=== PATIENT | female | born 1980 | race Caucasian/White ===

== ENCOUNTER 2019-09-04 16:20 | Outpatient (CLI) | payer SELFPAY | END 2019-09-04 16:21 | disposition home or self-care (01) | LOC: CHSLAB 16:26 | PROVIDERS: PCP Physician Assistant; Visit Provider Specialist | DX: D22.72 Melanocytic nevi of left lower limb, including hip (principal) | CPT/HCPCS: 88305; 88342 ==

== ENCOUNTER 2019-09-11 16:02 | Outpatient (CLI) | payer SELFPAY | END 2019-09-11 16:03 | disposition home or self-care (01) | LOC: CHSLAB 16:04 | PROVIDERS: PCP Physician Assistant; Visit Provider Specialist | DX: D22.5 Melanocytic nevi of trunk (principal) | CPT/HCPCS: 88305; 88342 ==

== ENCOUNTER 2022-12-03 17:17 | Emergency (ER) | payer SELFPAY ==
--- NOTE | ~2022-12-03 | XR_ITS ---
EXAMINATION: XR foot LT min 3V DATE: 12/03/2022 17:36 INDICATION: Left foot pain TECHNIQUE: Dorsoplantar, lateral, and 2 oblique views of the left foot were obtained. COMPARISON: None. FINDINGS: No fracture, dislocation, or subluxation. The bones, soft tissues, and joint spaces are nor mal. IMPRESSION: 1. No acute osseous abnormality. Reviewed, dictated and finalized at location F.
[2022-12-03 17:23] VITALS: BP 141/90; PULSE 83; RESP 16; TEMP 36.6; O2SAT 100
--- NOTE | 2022-12-03 17:23 | ED.LOWEXIN ---
HPI - Extremity Injury (Lower) General Chief Complaint: Extremity Injury, Lower Stated Complaint: Left Ankle Injury Time Seen by Provider: 12/03/22 17:23 Source: patient Mode of arrival: ambulatory Limitations: no limitations History of Present Illness HPI Narrative: Gillian is a 42-year-old female patient presenting to the clinic today with complaints of left foot injury that occurred 1 week ago. She reports a Serbian Baker/Airdell puppy that weighed approximately 20 lb ran into her left foot on Tuesday of last week. States that if there was a lot of bruising and swelling to her foot shortly after however swelling and bruising has now subsided she is still having some pain to the left lateral foot specifically over the left 5th metatarsal. Related Data Home Medications Medication Instructions Recorded Confirmed buspirone 5 mg tablet 5 mg PO BID 12/03/22 12/03/22 hydroxyzine HCl 25 mg tablet 25 mg PO TID PRN Anxiety 12/03/22 12/03/22 lisinopril 20 mg tablet 20 mg PO DAILY 12/03/22 12/03/22 norethindrone acetate 5 mg tablet 5 mg PO DAILY 12/03/22 12/03/22 Allergies Allergy/AdvReac Type Severity Reaction Status Date / Time No Known Allergies Allergy Verified 12/03/22 17:31 Review of Systems Review of Systems: Pertinent positives per HPI. Patient denies any fever, chills, rash, headache, visual changes, dizziness, cough, runny nose, sore throat, shortness of breath, chest pain, palpitations, nausea, vomiting, diarrhea, constipation, abdominal pain, or any urinary issues. PMFSH Comments At the time of my signature, I reviewed and agree with the nursing past medical, surgical, social, and family history. There is no relevant family history pertinent to the patient complaint. Exam Narrative: General: Well-developed, well nourished, in no apparent distress Head: Normocephalic, atraumatic. Cardio: Regular rate and rhythm, s1 and s2 normal, no murmur appreciated. Resp: Clear to auscultation bilaterally, no rhonchi, rales, wheezing or rubs. Musculoskeletal: No deformity, no bruising or swelling noted, tender to palpation over the left 5th metatarsal, grossly normal range of motion, muscle strength strong and equal, peripheral pulse strong, no edema, no cyanosis, normal gait and station Course Course Emergency Course: Portions of this record may have been created with voice recognition software. Level of Care: Express Care Visit Vital Signs Vital signs: Vital signs reviewed MDM - Extremity Injury (Lower) MDM Narrative Medical decision making narrative: At the time of visit patient is resting comfortably on the exam table. X-ray of the left foot was obtained and was negative for any fracture or malalignment. I suspect patient has left foot strain. Supportive measures were discussed with the patient she voiced understanding discharge instructions and agrees to treatment plan. Differential Diagnosis Differential diagnosis: Likely ankle sprain and strain and ankle fracture Imaging Data Radiologist's impression: ITS Impressions Foot X-Ray 12/03/22 17:57 IMPRESSION: 1. No acute osseous abnormality. Discharge Plan Discharge Clinical Impression: Foot sprain Qualifiers: Encounter type: initial encounter Laterality: left Qualified Code(s): S93.602A - Unspecified sprain of left foot, initial encounter Patient Disposition: Home, Self-Care Condition: Stable Instructions: Antibiotic Form, Foot Sprain (ED) Additional Instructions: X-rays negative for any sign of fracture or malalignment. Rest, ice, elevate, and wear jordan wrap as directed Tylenol/motrin for pain as discussed. Gradually bear weight No running or sports until healed. Follow up with your PCP if symptoms persist more than 1 week. Prescriptions: No Action buspirone 5 mg tablet 5 mg PO BID lisinopril 20 mg tablet 20 mg PO DAILY hydroxyzine HCl 25 mg tablet 25 mg PO TID PRN (Reason: An
== END 2022-12-03 18:10 | disposition home or self-care (01) ==
PROVIDERS: Emergency Provider Nurse Practitioner Family; PCP Physician Assistant
DX: S93.602A Unspecified sprain of left foot, initial encounter (principal); Z79.899 Other long term (current) drug therapy; W54.1XXA Struck by dog, initial encounter
CPT/HCPCS: 73630; 99203; G0463

== ENCOUNTER 2024-07-24 08:17 | Emergency (ER) | payer SELFPAY ==
--- NOTE | ~2024-07-24 | XR_ITS ---
[id number] Ordering provider: ARVIND Cano History: . pain rt side neck and rt side upper thoracic spine,no injury . Comparison: None. FINDINGS: VERTEBRAL BODIES: Normal height and alignment. No visible fracture or subluxation. The dens is intact . DISK SPACES: Narrowing of the disc C5-C6 and C6-C7. Uncovertebral joint osteoarthritic changes seen a t the same levels. Facet joint disease at the level of C7-T1. PARASPINOUS SOFT TISSUES: No prevertebral soft tissue swelling. IMPRESSION: No acute osseous abnormality cervical spine. Multilevel severe degenerative disc disease. Reviewed, dictated and finalized at location A.
--- NOTE | ~2024-07-24 | XR_ITS ---
3 VIEWS THORACIC SPINE Ordering provider: ARVIND Cano History: . pain rt side neck and rt side upper thoracic spine,no injury . Comparison: None. FINDINGS: VERTEBRAL BODIES: Normal height and alignment. No visible fracture or subluxation. Degenerative loza es of the spine. DISK SPACES: Multilevel degenerative disc disease in the mid and lower thoracic areas. SOFT TISSUES: Normal. IMPRESSION: No acute osseous abnormality of the thoracic spine. Multilevel degenerative disc disease in the mid and lower thoracic area. Reviewed, dictated and finalized at location A.
[2024-07-24 08:22] VITALS: BP 173/102; PULSE 74; RESP 16; TEMP 36.9; O2SAT 100
--- OUTSIDE RECORDS SUMMARY | 2024-07-24 08:26 | XMS_ITS | Clinical Summary ---
Author Organization [facility] Address [address] [place] [address] Phone Care Team Providers Care Acting Teacher Name Role Phone Henry Sanon Primary Care Provider [phone] Allergies Active Allergy Reactions Criticality Noted Date Comments Prednisone Unknown 07/21/2016 Medications omeprazole (PRILOSEC) 20 MG CAPSULE DELAYED RELEASE Take 1 Cap by mouth daily. 30 Cap 0 6 Active traMADol (ULTRAM) 50 MG Tablet Take 1-2 Tabs by mouth every 6 hours as needed for Pain. 20 Tab 0 7 Active cyclobenzaprine (FLEXERIL) 5 MG Tablet Take 1 Tab by mouth 3 times daily as needed for Muscle spasms. 14 Tab 9 Active traMADol (ULTRAM) 50 MG Tablet Take 1 Tab by mouth every 6 hours as needed for Mild or more severe pain. 14 Tab 9 Active lisinopril (PRINIVIL, ZESTRIL) 20 MG Tablet Take 20 mg by mouth daily. Active butalbital-aceta minophen-caffein e (FIORICET, ESGIC) 50-325-40 MG Tablet Take 1 Tab by mouth every 4 hours as needed for Headaches. 12 Tab 9 Active ondansetron (ZOFRAN ODT) 4 MG TABLET DISPERSIBLE Take 1 Tab by mouth every 8 hours as needed for Nausea - 1st line. 12 Tab 9 Active metoclopramide (REGLAN) 10 MG Tablet Take 1 Tab by mouth 4 times daily as needed for Nausea - 1st line or Other (ARITA). 10 Tab 9 Active SUMAtriptan (IMITREX) 100 MG Tablet Take 1 Tab by mouth daily as needed for Migraine. Use as directed. May repeat dose in 2 hours if headache recurs. 9 Tab 9 Active venlafaxine (EFFEXOR-XR) 75 MG CAPSULE SR 24 HR Take 75 mg by mouth daily. Active traMADol (ULTRAM) 50 MG Tablet Take 1-2 Tabs by mouth every 6 hours as needed for Moderate or more severe pain. 20 Tab 0 Active Pregabalin (LYRICA PO) Take by mouth. Act jordan albuterol 108 (90 Base) MCG/ACT Aerosol Solution take 2 Puffs by inhalation every 6 hours as needed for Cough. 6.7 g 3 Active naproxen (NAPROSYN) 500 MG Tablet Take 1 Tablet by mouth 2 times daily as needed for Mild or more severe pain. 20 Tablet 4 Active Social History Tobacco Use Types Packs/Day Years Used Date Smoking Tobacco: Every Day Cigarettes 0.5 20 Smokeless Tobacco: Never Alcohol Use Standard Drinks/Week Comments Yes 1 (1 standard drink = 0.6 oz pur e alcohol) drinks on fridays Comments No Sex and Gender Information Value Date Recorded Sex Assigned at Not on file Legal Sex Female 9:26 PM CDT Gender Identity Not on file Sexual Orientation Not on file Last Filed Vital Signs Vital Sign Reading Time Taken Comments Blood Pressure 160/80 03/02/2024 2:49 PM PERSONNEL RECRUITER Pulse 82 03/02/2024 2:49 PM PERSONNEL RECRUITER Temperature 36.3 C (97.4 F) 03/02/2024 12:51 PM PERSONNEL RECRUITER Respiratory Rate 20 03/02/2024 2:49 PM PERSONNEL RECRUITER Oxygen Saturation 100% 03/02/2024 2:49 PM PERSONNEL RECRUITER Inhaled Oxygen Concentration - - Weight 69.9 kg (154 lb 1.6 oz) 03/02/2024 12:51 PM PERSONNEL RECRUITER Height 162.6 cm (5' 4 ) 03/02/2024 12:51 PM PERSONNEL RECRUITER Body Mass Index 26.45 03/02/2024 12:51 PM PERSONNEL RECRUITER Plan of Treatment Health Maintenance Due Date Last Done Comments Hepatitis C Virus (HCV) Screening 1978 TdaP Immunization 1978 Hepatitis B Immunization (1 of 3 - 19+ 3-dose series) 1997 Pneumococcal Immunization Combined (1 of 2 - PCV) 1997 HPV/Cotest 2008 Discussion re Starting/Frequency of Mammograms 2018 Mammogram 09/21/2022 09/21/2021 Influenza Immunization (#1) 2023 SARS-COV-2 Immunization (2023- season) 2023 Cervical Cancer Screening (CCS) 09/21/2024 Pap Smear 09/21/2024 09/21/2021, 09/21/2021, 03/07/2011 Immunochemical Fecal Occult Blood 2028 09/21/2021 Colonoscopy 09/22/2031 09/21/2021 Colorectal Cancer Screening 09/22/2031 Respiratory Syncytial Virus (RSV) Immunization (Adult) (1 - 1-dose 75+ series) 2053 09/21/2021 Meningococcal Immunization (ACWY) Aged Out No longer eligible b ased on patient's age to complete this topic Rotavirus Immunization Aged Out No lo nger eligible based on patient's age to complete this topic Care Teams Acting Teacher Relationship Specialty Start Date End Date Henry Sanon PAC [address] [place] [address] PCP - General Physician Media Services Coordinator 05/22/18
--- OUTSIDE RECORDS SUMMARY | 2024-07-24 08:26 | XMS_ITS | Clinical Summary ---
Author Organization [facility] [address] Address [address] [place] [address] Care Team Providers Care Napping Machine Operator Name Role Phone Henry Sanon Primary Care Provider [phone] Allergies Active Allergy Reactions Criticality Noted Date Comments Acetaminophen Itching Reaction: itching, Codeine Hydrocodone Itching Reaction: itching, Prednisone Medications lisinopriL (PRINIVIL,ZESTRIL) 20 mg tablet TAKE 1 TABLET BY MOUTH ONCE DAILY FOR 90 DAYS 0 Active venlafaxine XR (EFFEXOR-XR) 75 mg 24 hr capsule TAKE 1 CAPSULE BY MOUTH ONCE DAILY FOR 90 DAYS 0 Active ondansetron ODT (ZOFRAN-ODT) 4 mg disintegrating tablet Take 4 mg by mouth every 8 (eight) hours as needed 9 Active traMADoL (ULTRAM) 50 mg tablet Take 50-100 mg by mouth every 6 (six) hours as needed 9 Active metoclopramide (REGLAN) 10 mg tablet Take 10 mg by mouth 4 (four) times a day as needed 9 Active ibuprofen (ADVIL,MOTRIN) 600 mg tablet Take 1 tablet (600 mg total) by mouth 3 (three) times a day Take with food. 30 tablet 0 Active Active Problems Problem Noted Date Diagnosed Date Infection of skin 12/24/2013 Overview (06/10/2016): Skin infection Surgical History Surgery Date Site/Laterality Comments OTHER SURGICAL HISTORY Left leg surgery Medical History Medical History Date Comments Cervical dystonia Social History Tobacco Use Types Packs/Day Years Used Date Smoking Tobacco: Every Day Cigarettes Tobacco Cessation:Counseling Given: No Alcohol Use Standard Drinks/Week Comments Not Currently 0 (1 standard drink = 0.6 oz pur e alcohol) Comments No Sex and Gender Information Value Date Recorded Sex Assigned at Not on file Legal Sex Female 6:27 PM PHOTO GRAPHICS LIBRARIAN Gender Identity Not on file Sexual Orientation Not on file Obstetrics History Last Filed Vital Signs Vital Sign Reading Time Taken Comments Blood Pressure 153/90 09/08/2021 4:30 PM CDT Pulse 62 09/08/2021 4:30 PM CDT Temperature 36.8 C (98.3 F) 09/08/2021 12:14 PM CDT Respiratory Rate 16 09/08/2021 4:30 PM CDT Oxygen Saturation 98% 09/08/2021 4:30 PM CDT Inhaled Oxygen Concentration - - Weight 65.8 kg (145 lb) 09/08/2021 12:14 PM CDT Height 162.6 cm (5' 4 ) 09/08/2021 12:14 PM CDT Body Mass Index 24.89 09/08/2021 12:14 PM CDT Plan of Treatment Health Maintenance Due Date Last Done Comments Breast Cancer Screening-Mammogram 1978 Cervical Cancer Screening 1978 Colon Cancer Screening-Colonoscopy 1978 Depression Screening 1978 Hepatitis C Screening 1978 DTaP/Tdap/Td Vaccine (1 - Tdap) 1989 Hepatitis B Screening 1996 Regular Well Visit/Exam 18-64 1996 Pneumococcal vaccine <65 (1 of 2 - PCV) 1997 Influenza Vaccine (Season Ended) 2024 HPV Vaccines Aged Out No longer eligi ble based on patient's age to complete this topic Care Teams Napping Machine Operator Relationship Specialty Start Date End Date Henry Sanon PA [address] [place] [address] PCP - General Family Practice 08/13/19
--- OUTSIDE RECORDS SUMMARY | 2024-07-24 08:26 | XMS_ITS | Encounter Summary ---
Author Organization [facility] Address [address] [place] [address] Phone Care Team Providers Care Calibration Specialist Name Role Phone Henry Sanon Primary Care Provider Encounter Details Date Type Department Care Team (Late st Contact Info) Description 01/21/2023 Transcribe Orders [facility] Central Scheduling [address] [place] [address] Henry Sanon, PAC [address] [place] [id number] Lumbar radiculopathy (Primary Dx) Social History Tobacco Use Types Packs/Day Years [...] on file Sexual Orientation Not on file documented as of this encounter Plan of Treatment Not on file documented as of this encounter Visit Diagnoses Diagnosis Lumbar radiculopathy- Primary Thoracic or lumbosacral neuritis or radiculitis, unspecified documented in this encounter Additional Health Concerns Infection Onset Date Last Indicated Resolved Time COVID - 19 10/16/2023 10/16/2023 10/16/2023 8:48 AM CDT documented as of this encounter Care Teams Calibration Specialist Relationship Specialty Start Date End Date Henry Sanon, [facility] [address] [place] [address] PCP - General Physician Applied Statistician 05/22/18 documented as of this encounter
--- OUTSIDE RECORDS SUMMARY | 2024-07-24 08:26 | XMS_ITS | Clinical Summary ---
Author Organization [facility] Address [address] [place] [address] Care Team Providers Care Grading Clerk Name Role Phone Henry Sanon Primary Care Provider [phone] Source Comments [facility],non-owned Affiliates and Associated Physician Practices is amultiple site organization consisting of ambulatory clinics and hospital sitesin [place] and [place]. This disclosure is being madepursuant to the Care Everywhere program and may not contain all information available regarding this patient. Last updated 17.[facility] [employer] Allergies Active Allergy Reactions Criticality Noted Date Comments Acetaminophen Itching 06/29/2023 Reaction: itching, Prednisone Itching 08/22/2018 Medications * Be aware that medications may not be up to date on this document. Alwaysverify current medications with the patient. lisinopril (PRINIVIL; ZESTRIL) 20 MG tablet 1 (one) tablet 0 9 Active naproxen (NAPROSYN) 375 MG tablet Take 1 (one) tablet by mouth 7 Active omeprazole (PRILOSEC) 20 MG capsule Take 1 (one) capsule by mouth once daily 6 Active topiramate (TOPAMAX) 50 MG tablet Take 1 tablet by mouth 2 times daily 60 tablet 3 9 Active Additional Information Patient not taking.Reported on 06/29/2023 albuterol HFA (Proventil; Ventolin; Proair) 108 (90 Base) MCG/ACT inhaler INHALE 2 PUFFS BY MOUTH EVERY 4 HOURS BY INHALATION ROUTE 3 Active busPIRone (Buspar) 5 MG tablet Take 1 (one) tablet by mouth 2 times daily 4 Active hydrOXYzine HCl (Atarax) 25 MG tablet Take 1 (one) tablet by mouth 3 times daily as needed 3 Active lisinopril (Prinivil; Zestril) 20 MG tablet Take 1 (one) tablet by mouth once daily Active losartan (Cozaar) 100 MG tablet TAKE 1 TABLET BY MOUTH ONCE DAILY FOR 90 DAYS. DISCONTINUE LISINOPRIL 4 Active baclofen (Lioresal) 20 MG tablet Take 1 (one) tablet by mouth 3 times daily as needed 4 Active botulinum toxin type A 100 units/1 ml (Botox) 100 UNIT injectionIndicat ions:Spasmodic Torticollis Inject 1 mL into muscle Every 90 days for 90 days Reasons: Involuntary Movements in Neck Muscles 1 mL 3 4 Active Active Problems Problem Noted Date Diagnosed Date Idiopathic peripheral neuropathy Dystonia Family History Medical History Relation Name Comments Renal Disease Brother CAD (Coronary Artery Disease) Father Dementia Maternal Grandfather Cancer - Breast Mother CVA Paternal Grandfather Hypertension Paternal Grandfather Hypertension Paternal Grandmother Relation Name Status Comments Brother Father Alive Maternal Grandfather Mother Alive Paternal Grandfather Alive Paternal Grandmother Social History Tobacco Use Types Packs/Day Years Used Date Smoking Tobacco: Every Day Cigarettes 0.5 30.9 Started: 08/22/1993 Smokeless Tobacco: Never Tobacco Cessation:Ready to Q uit: Not Asked; Counseling Given: Not Answered Alcohol Use Standard Drinks/Week Comments Yes 0 (1 standard drink = 0.6 oz pur e alcohol) rarely Comments No Sex and Gender Information Value Date Recorded Sex Assigned at Not on file Legal Sex Female 11:55 AM RUG WASHER Gender Identity Not on file Sexual Orientation Not on file Occupation Industry Job Start Date Job End Date Unemployed Not on file Not on file Not on file Last Filed Vital Signs Vital Sign Reading Time Taken Comments Blood Pressure 122/81 06/29/2023 9:04 AM CDT Pulse 76 06/29/2023 9:04 AM CDT Temperature 36.4 C (97.5 F) 06/29/2023 9:04 AM CDT Respiratory Rate - - Oxygen Saturation 97% 06/29/2023 9:04 AM CDT Inhaled Oxygen Concentration - - Weight 68.9 kg (152 lb) 06/29/2023 9:04 AM CDT Height 162.6 cm (5' 4 ) 08/22/2018 8:05 AM CDT Body Mass Index 26.09 08/22/2018 8:05 AM CDT Plan of Treatment Health Maintenance Due Date Last Done Comments COLOGUARD (AGES 45-75) - COL ON CA SCREENING 1978 COLON MONITORING 1978 COLONOSCOPY - COLON CA SCREENING 1978 CT COLONOGRAPHY - COLON CA SCREENING 1978 Colorectal Cancer Screening 1978 FIT - COLON CA SCREENING 1978 FLEX SIG - COLON CA SCREENING 1978 LIPID TESTING 1978 MAMMOGRAM 1978 PAP SMEAR 1978 HIV SCREENING 1993 HEPATITIS C SCREENING 04/18/1996 DTAP/TDAP/TD VACCINES (1 - Tdap) 1997 HEPATITIS B VACCINE (1 of 3 - 19+ 3-dose series) 1997 PNEUMOCOCCAL VACCINE (1 of 2 - PCV) 1997 COVID-19 VACCINE (1 - 2023-2 5 season) 2023 DEPRESSION SCREENING 03/07/2024 INFLUENZA VACCINE (Season Ended) 2024 ZOSTER VACCINE (1 of 2) 2028 HIB VACCINE Aged Out No longer eligi ble based on patient's age to complete this topic HPV VACCINE Aged Out No longer eligi ble based on patient's age to complete this topic MENINGOCOCCAL (Group B) VACC INE SHARED DECISION-MAKING Aged Out No longer eligibl e based on patient's age to complete this topic MENINGOCOCCAL GROUPS A/C/Y/W VACCINE Aged Out No longer eligible b ased on patient's age to complete this topic Insurance SELF PAY NO INSURANCE Member Subscriber Plan / Payer (Ef fective for All Dates) Name:Bhumi Ching Member ID:Not on file Relation to Subscriber:Self Name:Bhumi Ching Subscriber ID:Not on file Payer ID:Not on file Group ID:Not on file Type:Self Pay Address: [place], [place] Care Teams Grading Clerk Relationship Specialty Start Date End Date Henry Sanon PA [address] [place] [address] PCP - General 06/26/18
--- OUTSIDE RECORDS SUMMARY | 2024-07-24 08:26 | XMS_ITS | Clinical Summary ---
Author Organization [facility] Address [address] [place] [address] Care Team Providers Care Senior Game Advisor Name Role Phone Unavailable Primary Care Provider Unavailabl e Social History Tobacco Use Types Packs/Day Years Used Date Smoking Tobacco: Never Assessed Comments Unknown Sex and Gender Information Value Date Recorded Sex Assigned at Not on file Legal Sex Female 9:51 PM CADDY PACKER Gender Identity Not on file Sexual Orientation Not on file Plan of Treatment Health Maintenance Due Date Last Done Comments Cervical Cancer Screening Pa p Smear (Age 30 to 64) Every 3 Years 1978 Colorectal Cancer Screening Colonoscopy (10 Years) 1978 Annual Physical 1981 Hepatitis C 1996 DTaP, Tdap and Td Vaccines ( 1 - Tdap) 1997 Hepatitis B Vaccines (1 of 3 - 19+ 3-dose series) 1997 Cervical Cancer Screening Pa p with HPV Testing (Age 30 to 64) Every 5 Years 2008 Cervical Cancer Screening with HPV 2008 Mammogram Screening 2018 COVID-19 Vaccine (2023-2 5 season) 2023 Meningococcal B Vaccine Aged Out No l onger eligible based on patient's age to complete this topic Meningococcal Vaccine Aged Out No khoa claudette eligible based on patient's age to complete this topic Pneumococcal Vaccine: Pediat rics (0 to 5 Years) and At-Risk Patients (6 to 49 Years) Aged Out No longer eligible b ased on patient's age to complete this topic RSV Immunizations Under 20 Months Aged Out No longer eligible based on patient's age to complete this topic
--- OUTSIDE RECORDS SUMMARY | 2024-07-24 08:26 | XMS_ITS | Referral Summary ---
Author Organization [facility] [address] Address [address] [place] [address] Care Team Providers Care Neurosurgery Spine Physician Name Role Phone Henry Sanon Primary Care Provider Allergies Active Allergy Reactions Criticality Noted Date [...] of skin 12/24/2013 Overview (06/10/2016): Skin infection Social History Tobacco Use Types Packs/Day Years Used Date Smoking Tobacco: Every Day Cigarettes Tobacco Cessation:Counseling Given: No Alcohol Use Standard Drinks/Week Comments Not Currently 0 (1 standard drink = 0.6 oz pur e alcohol) Comments No Sex and Gender Information Value Date Recorded Sex Assigned at Not on file Legal Sex Female 6:27 PM COATING MIXER Gender Identity Not on file Sexual Orientation [...] 09/08/2021 12:14 PM CDT Plan of Treatment Not on file Care Teams Neurosurgery Spine Physician Relationship Specialty Start Date End Date Henry Sanon PA [address] [place] [address] PCP - General Family Practice 08/13/19
--- NOTE | 2024-07-24 08:41 | ED.GENADULT ---
HPI - General Adult General Chief complaint: Extremity Problem,Nontraumatic Stated complaint: right shoulder injury Source: patient Mode of arrival: ambulatory Limitations: no limitations History of Present Illness HPI narrative: Patient presents for evaluation pain in the neck and back. She initially stated she was having shoulder pain however on further questioning the pain is in the posterior aspect of the neck and over the right scapula. Symptom onset about two weeks ago. No precipitating cause or injury. She rates her pain as 13 on a scale of 1-10. Pain radiates into the right side of her chest She has tried tylenol and ibuprofen for her symptoms. She states she has had general weakness and pain in various joints since 2006. She has had a battery of tests performed without an identified cause. Related Data Home Medications Medication Instructions Recorded Confirmed Last Taken Type buspirone 5 mg tablet 5 mg PO BID 12/03/22 12/03/22 Unknown History hydroxyzine HCl 25 mg tablet 25 mg PO TID PRN Anxiety 12/03/22 12/03/22 Unknown History lisinopril 20 mg tablet 20 mg PO DAILY 12/03/22 12/03/22 Unknown History norethindrone acetate 5 mg tablet 5 mg PO DAILY 12/03/22 12/03/22 Unknown History Allergies Allergy/AdvReac Type Severity Reaction Status Date / Time No Known Allergies Allergy Verified 12/03/22 17:31 Review of Systems Review of Systems: CONSTITUTIONAL: Denies fever, chills, or sweats. EYES: Denies visual changes, redness, or discharge. ENT: Denies rhinorrhea, congestion, sore throat, or otalgia. CARDIOVASCULAR: Denies chest pain, palpitations, or edema. RESPIRATORY: Denies cough or dyspnea. GASTROINTESTINAL: Denies abdominal pain, nausea, vomiting, or diarrhea. GENITOURINARY: Denies dysuria or hematuria. SKIN: Denies rash or itching. MUSCULOSKELETAL: Reports neck pain and pain in the back in the area of the scapula NEUROLOGIC: Denies headache, numbness, dizziness, or weakness. PSYCHIATRIC: Denies anxiety or depression. [facility]LY [facility] Past Medical History Medical History Anxiety Surgical History Surgical History No pertinent past surgical history Family History Family History Mother Family history non-contributory Social History Social History Gender identity (if verbalized by the patient): Female Spiritual care concerns: No Exam Narrative: GENERAL: Well-appearing, well-nourished, and in no acute distress. HEAD: Normocephalic, atraumatic. EYES: PERRLA and EOMI. ENT: Nares clear, no rhinorrhea or epistaxis. Mucous membranes moist. Oropharynx without tonsillar hypertrophy exudate or other lesions. Bilateral TMs pearly schreiber nonbulging NECK: Supple. No adenopathy or masses. No carotid bruits or JVD. There is mild tenderness in posterior aspect of the neck CHEST: Clear to auscultation. No respiratory distress. No wheezes rales or rhonchi HEART: Regular rate and rhythm. No murmur heard. Normal peripheral pulses. ABDOMEN: Soft, nontender, nondistended, normal active bowel sounds. EXTREMITIES: Normal range of motion. No edema. BACK: Mild tenderness overlying the right scapula SKIN: Warm, dry, no rash. NEURO: No focal deficits. Alert and oriented x3. PSYCH: Normal mood and affect. Course Course Emergency Course: Patient presents for evaluation of neck and right scapula pain. X-ray showed degenerative changes. Offered to treat her this several different medications, all of which she declined. She states she will deal with it . She should follow up with primary care provider and go to the ER for worsening symptoms. Pt in agreement with plan of care. Level of Care: Express Care Visit Vital Signs Vital signs: Vital Signs Temperature 36.9 C 07/24/24 08:22 Pulse Rate 74 07/24/24 08:22 Respiratory Rate 16 07/24/24 08:22 Blood Pressure 173/102 H 07/24/24 08:22 Pulse Oximetry 100 07/24/24 08:22 Oxygen Delivery Room Air 07/24/24 08:22 Temperature 36.9 C 07/24/24 08:22 Pulse Rate 74 07/24/24 08:22 Respiratory Rate 16 07/24/24 08:22 Blood Pressure 173/102 H 07/24/24 08:22 Pulse Oximetry 100 07/24/24 08:22 Oxygen Delivery Room Air 07/24/24 08:22 Medical Decision Making Vital Signs Vital Signs: Vital Signs Temperature 36.9 C 07/24/24 08:22 Pulse Rate 74 07/24/24 08:22 Respiratory Rate 16 07/24/24 08:22 Blood Pressure 173/102 H 07/24/24 08:22 Pulse Oximetry 100 07/24/24 08:22 Oxygen Delivery Room Air 07/24/24 08:22 Temperature 36.9 C 07/24/24 08:22 Pulse Rate 74 07/24/24 08:22 Respiratory Rate 16 07/24/24 08:22 Blood Pressure 173/102 H 07/24/24 08:22 Pulse Oximetry 100 07/24/24 08:22 Oxygen Delivery Room Air 07/24/24 08:22 Imaging Data Radiologist's impression: 3 VIEWS THORACIC SPINE Ordering provider: ARVIND Cano History: . pain rt side neck and rt side upper thoracic spine,no injury . Comparison: None. FINDINGS: VERTEBRAL BODIES: Normal height and alignment. No visible fracture or subluxation. Degenerative changes of the spine. DISK SPACES: Multilevel degenerative disc disease in the mid and lower thoracic areas. SOFT TISSUES: Normal. IMPRESSION: No acute osseous abnormality of the thoracic spine. Multilevel degenerative disc disease in the mid and lower thoracic area. [id number] Ordering provider: ARVIND Cano History: . pain rt side neck and rt side upper thoracic spine,no injury . Comparison: None. FINDINGS: VERTEBRAL BODIES: Normal height and alignment. No visible fracture or subluxation. The dens is intact. DISK SPACES: Narrowing of the disc C5-C6 and C6-C7. Uncovertebral joint osteoarthritic changes seen at the same levels. Facet joint disease at the level of C7-T1. PARASPINOUS SOFT TISSUES: No prevertebral soft tissue swelling. IMPRESSION: No acute osseous abnormality cervical spine. Multilevel severe degenerative disc disease Discharge Plan Discharge Clinical Impression: Degenerative disc disease Patient Disposition: Home Condition: Stable Instructions: Antibiotic Form, Degenerative Disc Disease (ED) Patient Language: Persian Prescriptions: No Action buspirone 5 mg tablet 5 mg PO BID lisinopril 20 mg tablet 20 mg PO DAILY hydroxyzine HCl 25 mg tablet 25 mg PO TID PRN (Reason: Anxiety) norethindrone acetate 5 mg tablet 5 mg PO DAILY Follow-up/Referrals: Fab,AMY Bennett [Primary Care Provider] - Time of Disposition: 09:37
== END 2024-07-24 09:43 | disposition home or self-care (01) ==
PROVIDERS: Emergency Provider Nurse Practitioner; PCP Physician Assistant
DX: M50.322 Other cervical disc degeneration at C5-C6 level (principal); M50.323 Other cervical disc degeneration at C6-C7 level; F41.9 Anxiety disorder, unspecified
CPT/HCPCS: 72040; 72072; 99213; G0463